=== PATIENT | female | born 1965 | race Caucasian/White ===

== ENCOUNTER 2018-10-07 08:23 | Emergency (ER) | payer MEDICAID ==
[~2018-10-07] VITALS: Ht 177.8 cm; Wt 102.1 kg
[~2018-10-07 08:23] MED LIST: PHEN60TA; PHEN60TA PO
[2018-10-07 08:26] VITALS: BP 173/113
--- NOTE | 2018-10-07 08:59 | NUR ---
PT PRESENTED TO ED WITH NECK PAIN X 1 WEEK. PT STATES " I THINK I SLEPT ON IT WRONG."
[2018-10-07] MEDS ORDERED: KETOROLAC 30 MG/1 ML ONE (09:11)
--- NOTE | 2018-10-07 09:14 | NUR ---
PT TAKEN TO RADIOLOGY
[2018-10-07] MEDS ORDERED: KETOROLAC 30 MG/1 ML IM ONE (09:30)
== END 2018-10-07 10:23 | disposition home or self-care (01) ==
LOC: ED 09:43
DX: S16.1XXA Strain of muscle, fascia and tendon at neck level, initial encounter (principal); G40.909 Epilepsy, unspecified, not intractable, without status epilepticus; Z76.0 Encounter for issue of repeat prescription; X58.XXXA Exposure to other specified factors, initial encounter; Y93.89 Activity, other specified; Y92.89 Other specified places as the place of occurrence of the external cause; Y99.8 Other external cause status
CPT/HCPCS: 72050; 96372; 99283; J1885